=== PATIENT | male | born 1960 | race Caucasian/White ===

== ENCOUNTER 2021-05-02 16:31 | Emergency (ER) | payer OTHER ==
[~2021-05-02] VITALS: Ht 170.2 cm; Wt 115.3 kg
--- NOTE | 2021-05-02 16:48 | NUR ---
PT UNABLE TO RECALL HTN MED. PHARMACY: MALLORY ARAYA DR.
[2021-05-02] MEDS ORDERED: CAPTOPRIL 50 MG TABLET PO ONE (17:30)
[2021-05-02 17:32] LABS: BASOPHILS % (AUTO) 1 % (0-1); EOSINOPHILS % (AUTO) 2 % (1-7); LYMPHOCYTES % (AUTO) 20 % (22-44); MEAN CORPUSCULAR HEMOGLOBIN 35.2 pg (27.5-34.5); MEAN PLATELET VOLUME 8.3 fL (7.4-10.4); MONOCYTES % (AUTO) 10 % (2-9); NEUTROPHILS % (AUTO) 67 % (42-75); PLATELET COUNT 119 x10^3/uL (130-400); RED BLOOD COUNT 4.78 x10^6/uL (4.38-5.82); RED CELL DISTRIBUTION WIDTH 13.4 % (9.4-14.8)
[2021-05-02 17:46] LABS: ALANINE AMINOTRANSFERASE 65 U/L (12-78); ALBUMIN 3.5 g/dL (3.4-5.0); ANION GAP 6 mmol/L (5-15); CALCIUM 8.8 mg/dL (8.5-10.1); CHLORIDE 109 mmol/L (98-107); CREATININE 0.69 mg/dL (0.7-1.3)
[2021-05-02 17:50] LABS: ALKALINE PHOSPHATASE 94 U/L (45-117); BILIRUBIN,TOTAL 0.8 mg/dL (0.2-1.0); TOTAL PROTEIN 7.2 g/dL (6.4-8.2); TROPONIN I < 0.015 ng/mL (0.000-0.045)
[2021-05-02] MEDS ORDERED: CAPTOPRIL 25 MG TABLET PO ONE (18:00)
--- NOTE | 2021-05-02 18:20 | NUR ---
PT MEDICATED PER MAR, ERMD AWARE OF BP. DISCUSSED POC WITH PT, NO OTHER NEEDS AT THIS TIME
[2021-05-02 18:53] VITALS: BP 180/100
--- NOTE | 2021-05-02 18:54 | NUR ---
REPORT FROM URIEL GUZMAN
== END 2021-05-02 19:07 | disposition home or self-care (01) ==
LOC: ED 19:00
DX: I10 Essential (primary) hypertension (principal); Z76.0 Encounter for issue of repeat prescription; R51.9 Headache, unspecified; R42 Dizziness and giddiness
CPT/HCPCS: 36415; 70450; 71045; 80053; 83880; 84484; 85025; 93005; 99285